=== PATIENT | male | born 1950 | race Native Hawaiian/Other Pacific Islander ===

== ENCOUNTER 2018-09-25 09:00 | Outpatient (CLI) | payer OTHER | END 2018-09-25 09:04 | disposition short-term general hospital (02) | LOC: AMB 09:00 | DX: R07.89 Other chest pain (principal); R06.02 Shortness of breath | CPT/HCPCS: A0425; A0427 ==

== ENCOUNTER 2018-09-25 09:05 | Emergency (ER) | payer OTHER ==
[~2018-09-25] VITALS: Ht 160 cm; Wt 91.6 kg
[2018-09-25 09:05] VITALS: TEMP 98.1
[2018-09-25 10:04] LABS: PLATELET COUNT 277 K/uL (142-355)
[2018-09-25 10:15] LABS: POTASSIUM 4.2 mmol/L (3.6-5.2)
[2018-09-25 10:24] VITALS: BP 112/66
== END 2018-09-25 10:50 | disposition short-term general hospital (02) ==
LOC: ED 09:05
PROVIDERS: Emergency Medicine
DX: I21.9 Acute myocardial infarction, unspecified (principal); R07.89 Other chest pain
CPT/HCPCS: 36415; 80053; 82550; 82553; 84484; 85027; 85379; 92977; 93005; 96374; 96375; 99285; J1644; J2270; J3101

== ENCOUNTER 2019-01-08 09:56 | Outpatient (CLI) | payer OTHER | END 2019-01-08 23:59 | disposition home or self-care (01) | LOC: RAD 09:56 | DX: L03.115 Cellulitis of right lower limb (principal); R60.0 Localized edema ==

== ENCOUNTER 2022-05-05 13:19 | Emergency (ER) | payer OTHER ==
[~2022-05-05] VITALS: Ht 160 cm; Wt 91.6 kg
[2022-05-05 13:19] VITALS: BP 00/00
[2022-05-05 13:33] LABS: PLATELET COUNT 214 K/uL (142-355)
[2022-05-05 14:06] LABS: POTASSIUM 7.6 mmol/L (3.6-5.2)
== END 2022-05-05 15:23 | disposition still patient (30) ==
LOC: ED 13:22
PROVIDERS: Hospitalist
PROC: 5A1221J Performance of Cardiac Output, Continuous, Automated (ICD-10-PCS; principal; 2022-05-05)
DX: I46.9 Cardiac arrest, cause unspecified (principal); I50.9 Heart failure, unspecified
CPT/HCPCS: 80053; 82550; 82948; 83880; 84484; 85027; 85379; 85610; 92950; 96360; 96375; 99291; J0171; J1815; J3490; J7060